=== PATIENT | male | born 1950 | race Caucasian/White ===

== ENCOUNTER → 2021-03-14 07:53 | Outpatient (CLI) | payer MEDICARE, OTHER, SELFPAY ==
--- NOTE | 2021-03-14 | DI.ECHO.S_ITS ---
[facility] +---------+ : : [address] : [place] : : : : [id number] : : : : Phone: [phone]+ Echocardiogram Report + + :Name: VIKAS YOUNG Study Date: 03/14/2021 Height: 71 in : [facility] ReadingLocation: Weight: 175 lb : : Gender: Male BSA: 2.0 m2 : :: 1950 Age: 71 yrs BP: 170/80 mmHg: :Reason For Study: Atrial fibrillation - paroxysmal : : Performed By: TAB DALY : :Referring: GOMEZ FITZGERALD : + + Interpretation Summary Patient states this is an abnormally high BP for him. Checked it twice. The ejection fraction is estimated to be 55-60%. The left atrium is mildly dilated. The right atrium is severely dilated. There is no Doppler evidence for an interatrial shunt. There is mild mitral regurgitation. There is mild tricuspid regurgitation. The right ventricular systolic pressure is estimated to be at least 24 mmHg based on an estimated right atrial pressure of 3 mm Hg. Procedure: A two-dimensional transthoracic echocardiogram with color flow and Doppler was performed. The study quality was technically adequate. There is no prior echocardiogram noted for this patient. The patient was in normal sinus rhythm during the exam. Left Ventricle: The left ventricle is normal in size and wall thickness. The ejection fraction is estimated to be 55-60%. Left ventricular wall motion is normal. Right Ventricle: The right ventricle is mildly dilated. The right ventricular systolic function is normal. Atria: The left atrium is mildly dilated. The right atrium is severely dilated. There is no Doppler evidence for an interatrial shunt. Mitral Valve: The mitral valve is normal. There is mild mitral regurgitation. Aortic Valve: The aortic valve is trileaflet. The aortic valve opens well. The aortic valve is slightly calcified. No aortic regurgitation is present. Tricuspid Valve: The tricuspid valve is normal. There is mild tricuspid regurgitation. The right ventricular systolic pressure is estimated to be at least 24 mmHg based on an estimated right atrial pressure of 3 mm Hg. Pulmonic Valve: The pulmonic valve leaflets are thin and pliable; valve motion is normal. There is a trace or physiologic amount of pulmonic regurgitation. Great Vessels: The aortic root is normal size. The ascending aorta is normal in size. The aortic arch is normal in size. The IVC is of normal diameter and collapses greater than 50% with a sniff. This suggests a low right atrial pressure of 3 mm Hg. Pericardium/ Pleura There is no pericardial effusion. There is an anterior echo-free space consistent with a fat pad. There is no pleural effusion. MMode/2D Measurements & Calculations LVIDd: 5.0 cm LVOT diam: 2.0 cm LVIDs: 3.6 cm Ao root diam: 3.4 cm FS: 28.1 % asc Aorta Diam: 3.0 cm IVSd: 0.97 cm Ao Arch Diam (Prox Trans): 2.0 cm LVPWd: 0.82 cm LV ferrera. diameter/BSA (cm/m^2): 2.5 LV sys. diameter/BSA (cm/m^2): 1.8 LA A2 area: 25.9 cm2 RA long axis: 5.6 cm LA A4 area: 17.2 cm2 RA area: 24.3 cm2 LA length (vol): 5.3 cm RA vol: 89.0 ml LA vol: 71.5 ml RA : 44.7 ml/m2 LA vol index: 35.9 ml/m2 RVD1 (basal): 4.8 cm TAPSE: 2.5 cm Doppler Measurements & Calculations Ao V2 max: 119.4 cm/sec LVOT Max Marshall: 95.1 cm/sec Ao V2 mean: 80.1 cm/sec LV V1 max P.6 mmHg Ao max P.7 mmHg LV V1 VTI: 22.0 cm Ao mean P.8 mmHg TARYN(I,D): 2.4 cm2 Ao V2 VTI: 29.8 cm TARYN(V,D): 2.6 cm2 sev ratio: 0.74 TARYN indexed to BSA (cm^2/m^2): 1.2 MV E max marshall: 60.8 cm/sec TR max marshall: 227.6 cm/sec MV A max marshall: 39.0 cm/sec TR max P.7 mmHg MV E/A: 1.6 PA V2 max: 65.3 cm/sec Med Peak E' Marshall: 7.4 cm/sec PA V2 mean: 49.3 cm/sec E/E' med: 8.2 PA mean P.0 mmHg Lat Peak E' Marshall: 8.7 cm/sec PA pr(Accel): 27.6 mmHg E/E' lat: 7.0 E/e' average: 7.6 MV dec time: 0.22 sec SV(LVOT): 71.6 ml Reading Physician:11:30 AM
== END ==
PROVIDERS: Family Provider Family Medicine; PCP Family Medicine; Referring Provider Family Medicine; Visit Provider Family Medicine
DX: I08.1 Rheumatic disorders of both mitral and tricuspid valves (principal); I48.0 Paroxysmal atrial fibrillation
CPT/HCPCS: 93306

== ENCOUNTER → 2023-03-18 10:29 | Outpatient (CLI) | payer MEDICARE, OTHER, SELFPAY ==
--- NOTE | 2023-03-18 | DI.MRI.S_ITS ---
PROCEDURE: MR KNEE LT WO CON INDICATIONS: LEFT KNEE PAIN TECHNIQUE: Noncontrast sagittal PD fast spin echo and T2 fast spin echo with fat saturation, sagittal 3-D FLASH with fat saturation; coronal T1 spin echo and PD fast spin echo with fat saturation, and axial PD fast spin echo with fat saturation through the knee. COMPARISON: [facility] Outside Film, MR, MR KNEE LEFT WITHOUT CONTRAST, 09/14/2011, 18:34. [facility] [place], CR, XR KNEE 4+ VIEWS LEFT, 02/27/2023, 14:35. FINDINGS: Image quality: Excellent. Anterior Cruciate Ligament: Intact. Posterior Cruciate Ligament: Intact. Medial Collateral Ligament: Intact. Lateral Collateral Ligament: Intact. Medial Meniscus: Horizontal oblique tearing of the posterior horn and body of the medial meniscus extending to the middle third of the tibial articular surface, which is likely chronic. Lateral Meniscus: There is radial tearing at the body of the lateral meniscus. There is superimposed horizontal oblique tearing at the anterior horn and body. Posterior horn appears mildly diminutive. Medial and Lateral Tendons: The semimembranosus tendon insertions and meniscocapsular junction appear intact. Visualized portions of the pes anserinus tendons appear normal. No abnormal bursal fluid. The long and short heads of the biceps femoris tendon appear intact. The popliteus tendon appears intact. No signs of posterolateral corner injury. Iliotibial band appears normal. Anterior Structures: The quadriceps and patellar tendons appear intact. No patellar subluxation. No femoral trochlear dysplasia or ventral trochlear prominence. No edema in the infrapatellar fat pad. Bones: No acute trabecular bone injury or fracture. Medial Femorotibial Cartilage: Mild partial-thickness cartilage loss at the posterior weight-bearing portion of the medial femoral condyle with mild subchondral edema. Lateral Femorotibial Cartilage: Diffuse full-thickness cartilage loss throughout the weight-bearing portion of the medial femorotibial compartment with subchondral sclerosis and mild remodeling of the lateral tibial plateau articular surface. Patellofemoral Cartilage: Mild partial-thickness cartilage thinning without a focal defect. Soft Tissues: Moderate joint effusion. Small medial popliteal cyst. The musculature surrounding the knee is normal in bulk. IMPRESSION: 1. Full-thickness cartilage loss throughout the weight-bearing portion of the lateral femorotibial compartment with subchondral sclerosis and remodeling of the lateral tibial plateau articular surface, which has significantly progressed when compared to the remote prior MRI from 09/14/2011. 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 2. Complex tearing of the lateral meniscus with a radial component at the meniscal body as well as a horizontal oblique component at the anterior horn and likely chronic degenerative tearing of the posterior horn. 3. Horizontal oblique tearing of the posterior horn and body of the medial meniscus extending to the middle third of the tibial articular surface, which is likely chronic. 4. Cruciate and collateral ligaments are intact. No acute trabecular bone injury. 5. Moderate joint effusion. Small medial popliteal cyst. Approved by: Navjot Feliz M.D. on 03/18/2023 at 14:49
== END ==
PROVIDERS: Family Provider Family Medicine; PCP Family Medicine; Referring Provider Orthopaedic Surgery; Visit Provider Orthopaedic Surgery
DX: M25.562 Pain in left knee (principal); M94.262 Chondromalacia, left knee; S83.282A Other tear of lateral meniscus, current injury, left knee, initial encounter; S83.242A Other tear of medial meniscus, current injury, left knee, initial encounter; M25.462 Effusion, left knee; M71.22 Synovial cyst of popliteal space [Baker], left knee
CPT/HCPCS: 73721

== ENCOUNTER → 2024-06-15 13:36 | Outpatient (CLI) | payer MEDICARE, OTHER, SELFPAY ==
--- NOTE | 2024-06-15 13:37 | DI.CT.S_ITS ---
PROCEDURE: CT ABDOMEN WO/W CON INDICATIONS: LIVER CYST TECHNIQUE: 4 phase scanning was performed. Non-contrast 5 mm axial sections acquired from the diaphragm to the iliac crests. Following the administration of intravenous contrast, 5 mm thick arterial-phase, portal venous-phase, and 5-minute delayed phase images were acquired through the liver. 5 mm thick coronal and sagittal reformats were performed. For radiation dose reduction, the following was used: automated exposure control, adjustment of mA and/or kV according to patient size. COMPARISON: Outside Facility, CT, CT ANGIO CHEST, 03/31/2024, 15:11. FINDINGS: Image quality: Excellent. Lower chest: Unremarkable. ABDOMEN: Liver: No solid mass. Multiple small well-circumscribed hepatic cysts are unchanged compared to 03/31/2024. Gallbladder: Decompressed. No calcified gallstones. Biliary ducts: No biliary dilation. Pancreas: No ductal dilation. Spleen: Size is within normal limits. Adrenal Glands: No adrenal nodules. Kidneys and Ureters: No hydronephrosis. Punctate nonobstructing left kidney stone. No solid mass. No complex renal cystic lesion which requires follow up. Stomach and Bowel: Normal colonic caliber, without significant wall thickening. Peritoneum: No abnormal intraperitoneal fluid. No free air. Ventral Wall: No hernia. Abdominal Nodes: No retroperitoneal or mesenteric adenopathy by size criteria. Vessels: Aorta and inferior vena cava are normal in size. PELVIS: Pelvic Organs: Unremarkable. Bladder: Unremarkable. Pelvic Nodes: No enlarged lymph nodes. Miscellaneous: No inguinal hernias are seen. Bones: No aggressive osseous abnormality. IMPRESSION: 1. No suspicious cyst hepatic lesion. Multiple well-circumscribed hepatic cysts. 2. Punctate nonobstructing left kidney stone. Dictated by: Rashel Schultz M.D. on 06/16/2024 at 9:56 Approved by: Rashel Schultz M.D. on 06/16/2024 at 10:17
--- NOTE | 2024-06-15 13:37 | DI.US.S_ITS ---
PROCEDURE: US THYROID INDICATIONS: THYROID NODULE, LIVER CYST TECHNIQUE: Real-time scanning was performed of the thyroid gland, with image documentation. COMPARISON: Outside Facility, CT, CT ANGIO CHEST, 03/31/2024, 15:11. FINDINGS: Thyroid: Right lobe measures 4.8 x 1.8 x 1.7 cm. Left lobe measures 4.7 x 2.2 x 1.9 cm. Isthmus is 0.5 cm thick. Echotexture is heterogeneous. Nodule number: 1 Location: Right mid Size: 1 x 1 x 0.6 cm. Composition: Solid Echogenicity: Hypoechoic Shape: wider than tall. Margins: Smooth Echogenic foci: Macrocalcification Total points: 5 ACR TI-RADS category: TR 4, moderately suspicious Nodule number: 2 Location: Right inferior Size: 1.1 x 0.7 x 0.7 cm. Composition: Solid Echogenicity: Hypoechoic Shape: wider than tall. Margins: Smooth Echogenic foci: None Total points: 4 ACR TI-RADS category: TR 4, moderately suspicious Nodule number: 3 Location: Left inferior Size: 1.6 x 1.3 x 1.2 cm. Composition: Solid Echogenicity: Isoechoic Shape: wider than tall. Margins: Ill-defined Echogenic foci: None Total points: 3 ACR TI-RADS category: TR 3, mildly suspicious IMPRESSION: A few thyroid nodules. Right inferior thyroid nodule measuring 1.1 cm. TR 4, moderately suspicious. Recommend follow-up thyroid ultrasound in 1 year. ACR TI-RADS definitions and recommendations: TI-RADS 1 (benign): 0 points. FNA not needed. TI-RADS 2 (not suspicious): 2 points. FNA not needed. TI-RADS 3: 3 points. * FNA if 2.5 cm or larger, follow up if 1.5 cm or larger (at 1, 3, and 5 years). TI-RADS 4: 4-6 points. * FNA if 1.5 cm or larger, follow up if 1 cm or larger (at 1, 2, 3, and 5 years). TI-RADS 5: 7 points or more. * FNA if 1 cm or larger, follow up if 0.5 cm or larger (every year for 5 years). Dictated by: Rashel Schultz M.D. on 06/16/2024 at 10:26 Approved by: Rashel Schultz M.D. on 06/16/2024 at 10:36
== END ==
PROVIDERS: Family Provider Family Medicine; PCP Family Medicine; Referring Provider Family Medicine; Visit Provider Family Medicine
DX: K76.89 Other specified diseases of liver (principal); N20.0 Calculus of kidney; E04.1 Nontoxic single thyroid nodule
CPT/HCPCS: 74170; 76536; Q9967